=== PATIENT | female | born 1985 | race Caucasian/White ===

== ENCOUNTER → 2021-01-23 | Outpatient (CLI) | payer OTHER ==
--- NOTE | 2021-01-24 08:11 | MM ---
Reason for exam: screening (asymptomatic). Baseline mammogram. History: Family history of breast cancer in 3 maternal aunts at age 40. Taking hormonal contraceptives for 1 month beginning at age 34. Physical Findings: Nurse did not find any significant physical abnormalities on exam. MG 3D Screening Mammo W/Cad Bilateral CC and MLO view(s) were taken. The breast tissue is heterogeneously dense. This may lower the sensitivity of mammography. These results were verbally communicated with the patient and result sheet given to the patient on 01/23/21. ASSESSMENT: Benign, BI-RAD 2 RECOMMENDATION: Routine screening mammogram of both breasts in 1 year.
== END | disposition home or self-care (01) ==
LOC: RADMAMWWP 14:20
PROVIDERS: ATTEND Obstetrics & Gynecology
DX: Z12.31 Encounter for screening mammogram for malignant neoplasm of breast (principal); Z80.3 Family history of malignant neoplasm of breast
CPT/HCPCS: 77063; 77067

== ENCOUNTER → 2021-05-08 | Outpatient (CLI) | payer OTHER ==
--- NOTE | 2021-05-08 15:38 | US ---
EXAMINATION TYPE: US transvaginal DATE OF EXAM: 05/08/2021 COMPARISON: NONE CLINICAL HISTORY: Z15.02 GENETIC SUSPECT OVARIAN CA, Z14.8. TECHNIQUE: . Transabdominal sonographic images of the pelvis were acquired. Transvaginal sonographi c images were medically necessary to better assess the following anatomy: Ovaries Date of LMP: 3 weeks ago EXAM MEASUREMENTS: Uterus: 9.3 x 5.3 x 5.7 cm Endometrial Stripe: 1.4 cm Right Ovary: 3.0 x 2.0 x 1.7 cm Left Ovary: 2.7 x 1.7 x 1.6 cm 1. Uterus: Anteverted Heterogeneous 2. Endometrium: Fluid visualized within 3. Right Ovary: Cyst measuring 1.4 x 1.5 x 1.5 cm 4. Left Ovary: wnl 5. Bilateral Adnexa: Small amount of free fluid visualized in right adnexa 6. Posterior cul-de-sac: wnl IMPRESSION: 1. Endometrial fluid. 2. Right ovarian cyst.
== END | disposition home or self-care (01) ==
LOC: RADUSWWP 14:56
PROVIDERS: ATTEND Internal Medicine Hematology & Oncology
DX: Z15.02 Genetic susceptibility to malignant neoplasm of ovary (principal); Z14.8 Genetic carrier of other disease
CPT/HCPCS: 76830

== ENCOUNTER → 2021-08-18 | Outpatient (CLI) | payer OTHER ==
[2021-08-18 19:40] LABS: Basophils # (A) 0.06 X 10*3/uL (0.00-0.10); Basophils % (A) 0.9 %; Eosinophils # (A) 0.07 X 10*3/uL (0.04-0.35); HCT 39.2 % (37.2-46.3); HGB 12.8 g/dL (12.0-15.0); Lymphocytes # (A) 1.98 X 10*3/uL (0.90-5.00); Lymphocytes % (A) 29.5 %; MCH 29.4 pg (27.0-32.0); MCHC 32.7 g/dL (32.0-37.0); MCV 89.9 fL (80.0-97.0); Mean Platelet Volume 11.2 fL (9.5-12.2); Monocytes # (A) 0.54 X 10*3/uL (0.20-1.00); Neutrophils # (A) 4.04 X 10*3/uL (1.80-7.70); Neutrophils % (A) 60.3 %; Platelet Count 305 X 10*3/uL (140-440); RBC 4.36 X 10*6/uL (4.10-5.20); RDW 12.3 % (11.5-14.5); WBC 6.71 X 10*3/uL (4.50-10.00)
[2021-08-18 19:43] LABS: African American GFR (CKD) 135.9 (60.0-200.0); Anion Gap 10.3 mmol/L (10.00-18.00); BUN/Creat Ratio 15.33 Ratio (12.00-20.00); Blood Urea Nitrogen 9.2 mg/dL (9.0-27.0); Calcium 9.1 mg/dL (8.7-10.3); Carbon Dioxide 27.7 mmol/L (20.0-27.5); Non-African American GFR(CKD) 117.3 (60.0-200.0); Potassium 4.1 mmol/L (3.5-5.5)
== END | disposition home or self-care (01) ==
LOC: LABWHC1 11:28
PROVIDERS: ATTEND Obstetrics & Gynecology
DX: Z01.812 Encounter for preprocedural laboratory examination (principal)
CPT/HCPCS: 36415; 80048; 85025

== ENCOUNTER 2021-08-24 07:29 | Day surgery (SDC) | payer OTHER ==
[2021-08-21 15:44] VITALS: BMI 38.6
--- NOTE | 2021-08-23 16:31 | P.HPOB ---
History of Present Illness H&P Date: 08/23/21 Chief Complaint: BRCA1 positive Patient is a 35-year-old female with BRCA1 positive lab. She is increased risk for breast and ovarian cancer she is therefore scheduled for a robotic-assisted laparoscopic hysterectomy with bilateral salpingo-oophorectomy to reduce her risk of this occurring. Risks/benefits/alternatives were reviewed with the patient in detail including but not limited to bleeding and infection, damage to bladder or bowel, vascular degrees, nerve injuries, ureteral damage. She is aware that this there is anesthetic risks and even potentially . All questions are answered for her prior to proceeding to the operating room. [place] on physical exam vital signs are stable and afebrile. Heart regular, lungs clear, extremities without pain. Abdomen is soft and nontender. Pelvic exam is otherwise unremarkable. Assessment BRCA1 positive plan robotic-assisted laparoscopic hysterectomy with bilateral salpingo-oophorectomy possible MAK and possible BSO with cystoscopy at the conclusion of the procedure. Past Medical History Past Medical History: GERD/Reflux Additional Past Medical History / Comment(s): BRCA 1 gene. History of Any Multi-Drug Resistant Organisms: None Reported Past Surgical History: Section, Tubal Ligation Additional Past Surgical History / Comment(s): C-S x2, TL Past Anesthesia/Blood Transfusion Reactions: No Reported Reaction Smoking Status: Never smoker - Past Family History Mother Family Medical History: No Reported History Additional Family Medical History / Comment(s): (3 Maternal Aunts had breast cancer) Medications and Allergies Home Medications Medication Instructions Recorded Confirmed Type Cetirizine HCl [Zyrtec] 10 mg PO DAILY 08/21/21 08/21/21 History Collagen Complex 3 cap PO DAILY 08/21/21 History Lansoprazole 15 mg PO DAILY 08/21/21 08/21/21 History Multivit with Calcium,Iron,Min 1 each PO DAILY 08/21/21 08/21/21 History [Women's Multivitamin] Allergies Allergy/AdvReac Type Severity Reaction Status Date / Time No Known Allergies Allergy Verified 08/21/21 15:25 Exam Osteopathic Statement: *. No significant issues noted on an osteopathic structural exam other than those noted in the History and Physical/Consult.
[2021-08-24] MEDS ORDERED: SCOPOLAMINE 1.5MG/72HR PATCH TRANSDERM ONE (07:39)
[2021-08-24] MEDS ORDERED: HYDROmorphone 0.5 MG/0.5 ML SYRINGE IVP PRN (07:39)
[2021-08-24] MEDS ORDERED: MIDAZOLAM 2 MG/2 ML VIAL IV PRN (07:39)
[2021-08-24] MEDS ORDERED: LIDOCAINE 1% (10MG/ML) FOR IV START INTRADERMA PRN (07:39)
[2021-08-24] MEDS ORDERED: METOCLOPRAMIDE 5 MG/ML 2 ML VIAL IVP PRN (07:39)
[2021-08-24] MEDS: LACTATED RINGERS 1,000 ML IV SCH (08:08)
[2021-08-24] MEDS: ONDANSETRON 4 MG/2 ML VIAL IVP ONE ×2 (08:24→11:39)
[2021-08-24] MEDS: DEXAMETHASONE SOD PHOSPHATE 4 MG/ML 1 ML VIAL IV ONE ×2 (08:24→11:28)
[2021-08-24] MEDS ORDERED: fentaNYL (PF) 50 MCG/ML 5 ML AMP IVP ONE (08:38)
[2021-08-24] MEDS ORDERED: MIDAZOLAM 2 MG/2 ML VIAL IVP ONE (08:38)
[2021-08-24] MEDS ORDERED: HYDROmorphone (PF) 1 MG/ML ONE (09:43)
[2021-08-24] MEDS ORDERED: ROPIVACAINE 5 MG/ML 30 ML VIAL ONE (09:43)
[2021-08-24] MEDS ORDERED: LIDOCAINE 1% INJ 10MG/ML (20 ML MDV) ONE (09:43)
[2021-08-24] MEDS ORDERED: SUCCINYLCHOLINE CHLORIDE 100 MG/5 ML SYR IV ONE (09:43)
[2021-08-24] MEDS ORDERED: ROCURONIUM 10 MG/ML (5 ML VIAL) IV ONE (09:43)
[2021-08-24] MEDS ORDERED: PROPOFOL 10 MG/ML 20 ML VIAL IV ONE (09:43)
[2021-08-24] MEDS ORDERED: GLYCOPYRROLATE 0.2 MG/ML 2 ML VIAL ONE (09:43)
[2021-08-24] MEDS ORDERED: MIDAZOLAM 2 MG/2 ML VIAL ONE (09:43)
[2021-08-24] MEDS ORDERED: SODIUM CHLORIDE 0.9% (PF) 10 ML VIAL ONE (09:43)
[2021-08-24] MEDS ORDERED: NEOSTIGMINE 1 MG/ML 10 ML VIAL ONE (09:43)
[2021-08-24] MEDS ORDERED: fentaNYL (PF) 50 MCG/ML 2 ML AMP ONE (09:43)
[2021-08-24] MEDS ORDERED: BUPIVACAINE (PF) 0.25% 30 ML VIAL SQ ONE (10:21)
[2021-08-24] MEDS ORDERED: KETOROLAC 15 MG/ML 1 ML VIAL IVP PRN (11:09)
[2021-08-24] MEDS ORDERED: SIMETHICONE 80 MG CHEWABLE PO PRN (11:09)
[2021-08-24] MEDS ORDERED: IBUPROFEN 600 MG TAB PO PRN (11:09)
[2021-08-24] MEDS ORDERED: ONDANSETRON 4 MG/2 ML VIAL IVP PRN (11:09)
--- NOTE | 2021-08-24 11:14 | P.ANPRN ---
Procedure Note - Anesthesia - Nerve Block Performed Bilateral Erector Spinae Single Time Out Performed: Yes ([id number]) Date of Procedure: 08/24/21 Procedure Start Time: 08:37 Procedure Stop Time: 08:42 Location of Patient: PreOp Indication: Acute Post-Operative Pain, Requested by Surgeon Specifically requested for management of pain by DrRafa: Sunil Walker Sedation Type: Sedate with meaningful contact maintained Preparation: Sterile Prep Position: Prone Catheter: None Needle Types: Pajunk Needle Gauge: 21 Ultrasound used to visualize needle placement: Yes Ultrasound used to observe medication spread: Yes Injectate: 0.5% Ropivacaine (see comment for volume) (15cc + 15cc nacl pf) Blood Aspirated: No Pain Paresthesia on Injection Noted: No Resistance on Injection: Normal Image Stored and Saved: Yes Events: Uneventful and Well Tolerated
--- NOTE | 2021-08-24 11:15 | P.OP ---
Date of Procedure: 08/24/21 Preoperative Diagnosis: BRCA1 positive Postoperative Diagnosis: Same Procedure(s) Performed: Robotic-assisted laparoscopic hysterectomy with bilateral salpingo-oophorectomy Anesthesia: JESI Surgeon: Sunil Walker Physical Therapy Technician #1: Jemima Hummel Estimated Blood Loss (ml): 5 IV fluids (ml): 800 Urine output (ml): 200 Pathology: other (Uterus, cervix, fallopian tubes, ovaries) Condition: stable Disposition: floor Operative Findings: Pathology pending Description of Procedure: Patient was taken to the operating suite where a general anesthetic was found be adequate. She was prepped and draped in the normal sterile fashion and placed in the dorsal lithotomy position. Initially a weighted speculum was inserted in the vagina and the anterior lip of cervix identified and grasped with a single- tooth tenaculum. Cervix was then sounded to 11 cm and cup size was measured to 2.5 cm Mercedez manipulator was then inserted without difficulty with stay sutures placed at 3 and 9. These incidents were then removed and Eldridge cath was placed. Gloves were then changed and attention was turned to the abdominal portion of the procedure where 2 mL of quarter percent Marcaine was injected approximately 2 cm above the umbilicus. Once this was completed a 5 mm skin incision was made and through this incision, under direct visualization with an optical trocar and sleeve the camera was inserted. Once peritoneal placement was assured gas was allowed to fully insufflate the abdomen and patient was then placed in steep Trendelenburg position. 2 lateral ports were then placed approximately 12 cm lateral to the umbilicus through 8 mm skin incisions da Alban ports and sleeves were inserted under direct visualization through these. Once this was completed a 1 cm incision was made between the left lateral and the medial port and a trocar and sleeve were inserted through this. Camera port was then exchanged for robotic port and the robot was brought in and docked. A scissor was placed in the one arm and a [place] grasper in the 2 arm and at this point I broke scrub and went to the console. Observations pelvis were noted. She did have one fibroid noted on the fundal region of the uterus uterus was then elevated and tipped to the right side and then the infundibular pelvic ligament on the left side was identified cauterized and transected. Moving through the mesosalpinx and broad ligament tissues towards the round ligament tissues cauterize transected and then the rounding was cauterized transected and anterior posterior leafs the broad ligament were developed. Moving laterally along the side of the uterus the uterine vascular was cauterized and transected to the bladder flap. At the bladder flap bladder flap was entered and then undermined with [place] and incised across face uterus bluntly dissected the uterus out of the operative field. Once this was completed uterus was tipped the left-hand side and a similar fashion the right side of the uterus was developed. Once this was completed verifying that the bladder was out of the operative field the cup was blown up in the manipulator and an anterior colpotomy was made. Cup was then followed in a counterclockwise fashion cheating head when necessary to maintain excellent hemostasis and once 3 and 60 was developed the uterus was brought into the vagina to maintain pneumoperitoneum. Once all pedicles were HEENT verified hemostatic incidents were exchanged for a make suture cut and Thomas grasper and the vaginal cuff was closed with 20 the lock suture in a running fashion. Once this was com pleted pelvis was irrigated no bleeding is noted across the pedicles therefore all incidents removed gas was allowed to expel from the abdomen. 5 deep breaths were provided during this process and Dr. Hummel close incision subcuticularly with 4-0 Vicryl. Concurrently I did a diagnostic cystoscopy with excellent flow noted from both ureteral jets. Sponge, lap, needle counts were all correct 2. Patient was then taken to the recovery room in stable and satisfactory condition.
[2021-08-24] MEDS: KETOROLAC 30 MG/ML 1 ML VIAL IVP SCH ×3 (12:56→19:01)
[2021-08-24] MEDS: SENNOSIDES-DOCUSATE SODIUM 1 EACH TAB PO SCH (20:50)
[2021-08-25] MEDS: KETOROLAC 30 MG/ML 1 ML VIAL IVP SCH ×2 (01:49→08:14)
[2021-08-25] MEDS: LACTATED RINGERS 1,000 ML IV SCH (08:13)
[2021-08-25] MEDS: SENNOSIDES-DOCUSATE SODIUM 1 EACH TAB PO SCH (08:14)
[2021-08-25 08:40] VITALS: BP 115/75; PULSE 87; RESP 16; TEMP 98.6
--- NOTE | 2021-08-25 09:23 | P.DS ---
Providers Date of admission: 08/25/21 05:15 Expected date of discharge: 08/25/21 Attending physician: Sunil Walker Primary care physician: [facility] Course: Patient is doing very well postop day 1. She is ambulating, voiding and tolerating her diet. She voices no complaints and is requesting discharge home today. Vital signs are stable and afebrile. Heart regular, lungs clear, extremities without pain. Abdomen soft and nontender with incisions that are clean dry and intact. Assessment postop day 1. Plan discharged home follow up with me in 1 week. Prescription for Motrin and [place] for her to the pharmacy and discharge instructions were thoroughly reviewed. All questions are answered for her and she is stable for discharge this time. Patient Condition at Discharge: Good Plan - Discharge Summary Discharge Rx Participant: No New Discharge Prescriptions: New HYDROcodone/APAP 5-325MG [[place] 5-325] 1 tab PO Q4HR PRN #20 tab PRN Reason: Pain Ibuprofen [Motrin] 600 mg PO Q6HR PRN #30 tab PRN Reason: Pain No Action Multivit with Calcium,Iron,Min [Women's Multivitamin] 1 each PO DAILY Cetirizine HCl [Zyrtec] 10 mg PO DAILY Lansoprazole 15 mg PO DAILY Collagen Complex 3 cap PO DAILY Discharge Medication List Cetirizine HCl [Zyrtec] 10 mg PO DAILY 08/21/21 [History] Collagen Complex 3 cap PO DAILY 08/21/21 [History] Lansoprazole 15 mg PO DAILY 08/21/21 [History] Multivit with Calcium,Iron,Min [Women's Multivitamin] 1 each PO DAILY 08/21/21 [History] HYDROcodone/APAP 5-325MG [[place] 5-325] 1 tab PO Q4HR PRN #20 tab 08/25/21 [Rx] Ibuprofen [Motrin] 600 mg PO Q6HR PRN #30 tab 08/25/21 [Rx] Follow up Appointment(s)/Referral(s): Sunil Walker DO [Doctor of Osteopathic Medicine] - 1 Week Activity/Diet/Wound Care/Special Instructions: No heavy lifting, limit stairs and driving, and pelvic rest. If any high temperatures, heavy bleeding, or severe pain call my office Discharge Disposition: HOME SELF-CARE
== END 2021-08-25 10:00 | disposition home or self-care (01) ==
LOC: OR 07:29 → 6PED 11:23 → UNDOADMOB 08-25 05:15 → 6PED 08-25 05:15 → OR 08-25 05:15 → UNDODISOB 08-25 10:00
PROVIDERS: ATTEND Obstetrics & Gynecology
DX: Z15.01 Genetic susceptibility to malignant neoplasm of breast (principal); Z98.891 History of uterine scar from previous surgery; Z98.51 Tubal ligation status; K21.9 Gastro-esophageal reflux disease without esophagitis; Z80.3 Family history of malignant neoplasm of breast; Z79.899 Other long term (current) drug therapy; Z91.013 Allergy to seafood; J30.2 Other seasonal allergic rhinitis
CPT/HCPCS: 58571; S2900; 64999; 81025; 86850; 86900; 86901; 87635; 88307

== ENCOUNTER → 2022-01-24 | Outpatient (CLI) | payer OTHER ==
--- NOTE | 2022-01-25 14:36 | MM ---
Reason for exam: screening (asymptomatic). Last mammogram was performed 1 year ago. History: Patient has breast cancer gene. Family history of breast cancer in 3 maternal aunts at age 40. Taking hormonal contraceptives for 1 month beginning at age 34. Physical Findings: A clinical breast exam by your physician is recommended on an annual basis and results should be correlated with mammographic findings. MG 3D Screening Mammo W/Cad Bilateral CC and MLO view(s) were taken. Prior study comparison: January 23, 2021, bilateral MG 3d screening mammo w/cad. There are scattered fibroglandular densities. Benign appearing bilateral calcifications. No significant changes when compared with prior studies. ASSESSMENT: Benign, BI-RAD 2 RECOMMENDATION: Routine screening mammogram of both breasts in 1 year.
== END | disposition home or self-care (01) ==
LOC: RADMAMWWP 09:55
PROVIDERS: ATTEND Internal Medicine Hematology & Oncology
DX: Z12.31 Encounter for screening mammogram for malignant neoplasm of breast (principal); Z80.3 Family history of malignant neoplasm of breast
CPT/HCPCS: 77063; 77067

== ENCOUNTER → 2022-08-23 | Outpatient (CLI) | payer OTHER ==
--- NOTE | 2022-08-31 06:43 | BMR ---
EXAMINATION TYPE: MR breast BILAT wo/w con DATE OF EXAM: 08/23/2022 COMPARISON: Prior 3-D screening mammogram January 24, 2022 BI-RADS 2. Prior outside bilateral breast MRI July 28, 2021 HISTORY: Genetic susceptibility to malignant neoplasm of breast. TECHNIQUE: A series of fat and water weighted images in the long and short axis views of both breasts are obtained in conjunction with dynamic contrast MRI with subtraction technique. The patient was i njected with 10 mL intravenous Gadavist gadolinium contrast. Three-dimensional and additional postp rocessing imaging is created on independent workstation and reviewed during official interpretation o f this study. FINDINGS: Scattered fibroglandular tissue bilaterally is redemonstrated. T2 and STIR weighted images show no significant cystic lesions or focal fluid collections in either breast. There are symmetric b enign-appearing bilateral axillary lymph nodes. No suspicious axillary adenopathy is present. Dynamic postcontrast imaging shows mild background enhancement bilaterally. No suspicious internal mammary a denopathy is noted on delayed imaging. Dynamic postcontrast imaging shows no suspicious enhancement or enhancing masses in either breast. No abnormal skin thickening is seen. The chest wall appears intact bilaterally. New areas of diminished T1 signal and linear scarring favor hemosiderin deposition related to interval breast reduction surg amanda from prior MRI. This includes focal linear scarring with predominantly gradual type enhancement i n the medial aspect of the left breast. IMPRESSION: Evidence of interval bilateral breast surgery presumed volume reduction surgery since josé or MRI. No MRI evidence for invasive malignancy in either breast. BI-RADS 2 benign findings bilaterally. Recommendation: Patient is due for annual bilateral breast mammogram January 2023 to be back on annual pr hedule. Annual bilateral breast MRI advised in high risk patient. Case performed in consultation with [facility] [email or web address]] breast MRI radiologist. I agree with the above findings, imp ression, and recommendation.
== END | disposition home or self-care (01) ==
LOC: RADMRIMAIN 09:04
PROVIDERS: ATTEND Internal Medicine Hematology & Oncology
DX: Z15.01 Genetic susceptibility to malignant neoplasm of breast (principal)
CPT/HCPCS: 77049; A9585

== ENCOUNTER → 2023-01-25 | Outpatient (CLI) | payer OTHER ==
--- NOTE | 2023-01-28 18:43 | MM ---
Reason for Exam: Screening (asymptomatic). Last screening mammogram was performed 12 month(s) ago. Patient History: Menarche at age 12. First Full-Term at age 24. Left ovary removed at age 35. Right ovary removed at age 35. Hysterectomy at age 35. Postmenopausal. Patient tested for BRCA1 outcome was positive. Currently using Hormonal Contraceptives, for 1 month. Bilateral Reduction. Maternal aunt had breast cancer, age 40. Maternal aunt had breast cancer, age 40. Maternal aunt had breast cancer, age 40. Prior Study Comparison: 01/23/2021 Bilateral Screening Mammogram, [facility]. 01/24/2022 Bilateral Screening Mammogram, [facility]. Tissue Density: There are scattered fibroglandular densities. Findings: Analyzed By CAD. Interval changes of bilateral reduction mammoplasty. There is no suspicious group of microcalcifications or new suspicious mass in either breast. Overall Assessment: Benign, BI-RAD 2 Management: Screening Mammogram of both breasts in 1 year. Appropriate further surveillance/management given patient's reported high risk BRCA 1 positive result. The patient may qualify for future screening with alternating mammogram and breast MRI. Patient should continue monthly self-breast exams. A clinical breast exam by your physician is recommended on an annual basis. This exam should not preclude additional follow-up of suspicious palpable abnormalities. Electronically signed and approved by: Geoff Dubose M.D. Radiologist
== END | disposition home or self-care (01) ==
LOC: RADMAMWWP 09:01
PROVIDERS: ATTEND Internal Medicine Hematology & Oncology
DX: Z12.31 Encounter for screening mammogram for malignant neoplasm of breast (principal); Z78.0 Asymptomatic menopausal state; Z80.3 Family history of malignant neoplasm of breast
CPT/HCPCS: 77063; 77067